=== PATIENT | female | born 1985 | race Caucasian/White ===

== ENCOUNTER 2021-10-18 17:12 | Emergency (ER) | payer MEDICARE ==
[~2021-10-18] VITALS: Ht 162.6 cm; Wt 67.3 kg
[2021-10-18] MEDS ORDERED: BENZONATATE 100MG CAPSULE PO ONE (20:25)
[2021-10-18] MEDS ORDERED: BENZ200C70 PO (20:29)
[2021-10-18 20:39] VITALS: BP 134/75
== END 2021-10-18 20:41 | disposition home or self-care (01) ==
LOC: M ED 17:12
DX: U07.1 COVID-19 (principal); R56.9 Unspecified convulsions; R00.9 Unspecified abnormalities of heart beat; Z97.4 Presence of external hearing-aid

== ENCOUNTER 2021-11-06 01:11 | Emergency (ER) | payer MEDICARE, OTHER ==
[~2021-11-06] VITALS: Ht 162.6 cm; Wt 68.2 kg
[~2021-11-06 01:11] MED LIST: BENZ200C70 PO
[2021-11-06] MEDS ORDERED: LEVE500T5 (01:38)
[2021-11-06] MEDS ORDERED: VIMP200T PO (01:38)
[2021-11-06] MEDS ORDERED: METO1TAB87 PO (01:49)
[2021-11-06 01:57] LABS: BASO % 0.2 % (0.0-1.0); EOS % 0.2 % (0.0-3.0); HEMATOCRIT 46.8 % (36.0-47.0); HEMOGLOBIN 15.6 g/dl (12.0-15.5); LYMPH % 6.1 % (24.0-44.0); MEAN CORPUSCULAR HEMOGLOBIN 29.3 pg (27.0-33.0); MEAN CORPUSCULAR HGB CONC 33.3 g/dl (32.0-36.5); MONO # 0.9 10^3/uL (0.0-0.8); MONO % 5.4 % (2.0-8.0); NEUTROPHILS # 14.3 10^3/uL (1.5-8.5); NEUTROPHILS % 87.7 % (36.0-66.0); PLATELET COUNT, AUTOMATED 268 10^3/uL (150-450); RED BLOOD COUNT 5.32 10^6/uL (4.00-5.40); WHITE BLOOD COUNT 16.3 10^3/uL (4.0-10.0)
[2021-11-06] MEDS ORDERED: ABIL10TA9 PO (02:03)
[2021-11-06] MEDS ORDERED: CLOM75CA3 PO (02:03)
[2021-11-06] MEDS ORDERED: D-MAPOW4 XX (02:04)
[2021-11-06 03:02] LABS: BLOOD UREA NITROGEN 13 MG/DL (7-18); CALCIUM LEVEL 8.4 MG/DL (8.5-10.1); CARBON DIOXIDE LEVEL 22 MEQ/L (21-32); CHLORIDE LEVEL 107 MEQ/L (98-107); CREATININE FOR GFR 0.84 MG/DL (0.55-1.30); GLOMERULAR FILTRATION RATE > 60.0 (>60); GLUCOSE, FASTING 102 MG/DL (70-100); POTASSIUM SERUM 3.6 MEQ/L (3.5-5.1); SODIUM LEVEL 136 MEQ/L (136-145)
[2021-11-06 06:39] LABS: ALBUMIN 3.7 GM/DL (3.2-5.2); ALT/SGPT 37 U/L (12-78); BILIRUBIN,DIRECT 0.3 MG/DL (0.0-0.2); BILIRUBIN,TOTAL 0.6 MG/DL (0.2-1.0); LIPASE 73 U/L (73-393); TOTAL PROTEIN 7.6 GM/DL (6.4-8.2)
[2021-11-06] MEDS ORDERED: NS 1,000 ML IV ONE (07:35)
[2021-11-06] MEDS ORDERED: levETIRAcetam INJection 500 MG in D5W MINI-BAG PLUS 100 ML IV ONE (07:40)
[2021-11-06] MEDS ORDERED: PROMETHAZINE 25MG/ML 1ML VIAL IV ONE (07:45)
[2021-11-06] MEDS ORDERED: LACOSAMIDE 10MG/ML 20ML VIAL (VIMPAT) IV STA (07:47)
[2021-11-06] MEDS ORDERED: LIDOCAINE 2% 5ML JELLY UROJET TOP ONE (09:35)
[2021-11-06 09:48] VITALS: BP 116/68
[2021-11-06 10:44] LABS: BACTERIA, URINE LARGE AMOUNT; HYALINE CAST, URINE NONE SEEN /lpf (0-1); RBC, URINE 20-30 /hpf (0-3); SQUAMOUS EPITHELIAL CELL URINE SMALL AMOUNT /hpf (SMALL AMT)
[2021-11-06] MEDS ORDERED: NS 500 ML IV ONE (12:20)
[2021-11-06] MEDS ORDERED: METOPROLOL TART 25 MG TABLET PO ONE (12:20)
[2021-11-06] MEDS ORDERED: NITROFURANTOIN (MACROBID) 100 MG CAP PO ONE (12:50)
[2021-11-06] MEDS ORDERED: MACR100C43 PO (15:06)
== END 2021-11-06 15:37 | disposition home or self-care (01) ==
LOC: M ED 01:11
DX: N39.0 Urinary tract infection, site not specified (principal); E86.0 Dehydration; R56.9 Unspecified convulsions; M45.9 Ankylosing spondylitis of unspecified sites in spine; Z88.2 Allergy status to sulfonamides; Z88.1 Allergy status to other antibiotic agents; Z88.5 Allergy status to narcotic agent; Z91.041 Radiographic dye allergy status; Z91.013 Allergy to seafood
CPT/HCPCS: 36415; 74176; 80048; 80076; 81000; 83605; 83690; 84702; 85025; 87040; 87088; 87186; 87428; 87486; 87581; 87633; 87798; 93005; 96361; 96374; 96375; 99284; C9254; J1953; J2550